=== PATIENT | male | born 1990 | race Caucasian/White ===

== ENCOUNTER 2017-01-06 16:03 | Emergency (ER) | payer MEDICAID, SELFPAY ==
[~2017-01-06] VITALS: Ht 188 cm; Wt 81.8 kg
[2017-01-06] MEDS ORDERED: KETOROLAC 30 MG/1 ML IM ONE (17:30)
[2017-01-06] MEDS ORDERED: OXYcodone/APAP 10/325MG TABLET PO ONE (17:30)
[2017-01-06] MEDS ORDERED: KETOROLAC 30 MG/1 ML ONE (17:51)
[2017-01-06] MEDS ORDERED: OXYcodone/APAP 10/325MG TABLET ONE (17:51)
[2017-01-06 18:23] VITALS: BP 114/71
== END 2017-01-06 18:30 | disposition home or self-care (01) ==
LOC: ED 18:24
DX: M94.0 Chondrocostal junction syndrome [Tietze] (principal)
CPT/HCPCS: 71020; 93005; 96372; 99284; J1885